=== PATIENT | male | born 1940 | race Caucasian/White ===

== ENCOUNTER → 2016-05-11 | Outpatient (CLI) | payer MEDICARE, OTHER ==
--- NOTE | 2016-05-11 16:03 | REP ---
MR LUMBAR SPINE WITHOUT CONTRAST: HISTORY: Back and bilateral leg pain. Decreased signal intensity on T2-weighted images is present in lumbar intervertebral discs. The discs are decreased in height. These findings are consistent with disc degeneration. A diffuse disc bulge is present at the L1-2 level. There is minimal compression of the thecal sac. There is hypertrophy of the posterior articulating facets. The L1 nerves exit the neural foramina without compression. A diffuse disc bulge is present at the L2-3 level. There is hypertrophy of the ligamenta flava and posterior articulating facets. These findings produce minimal central canal stenosis. The L2 nerves exit the neural foramina without compression. A diffuse disc bugle is present at the L3-4 level. There is hypertrophy of the ligamenta flava and posterior articulating facets. These findings produce minimal central canal stenosis. The L3 nerves exit the neural foramina without compression. A diffuse disc bulge asymmetric to the right is present at the L4-5 level. There is hypertrophy of the ligamenta flava and posterior articulating facets. These findings produce minimal central canal stenosis. There is compression of the right L4 nerve in the neural foramen. The left L4 nerve exits the neural foramen without compression. A diffuse disc bulge is present at the L5-S1 level. This abuts the thecal sac. There is hypertrophy of the posterior articulating facets. The L5 nerves exit the neural foramina without compression. There is partial sacralization of the L5 vertebral body. The conus medullaris is normal in appearance terminating at the level of the T12-L1 intervertebral disc. Increased signal intensity on T2-weighted images is present in the endplates of the L3-5 vertebral bodies. This represents degenerative change. There is an old compression fracture of the L3 vertebral body with minimal height loss. IMPRESSION: 1. Diffuse disc bulge at the L1-2 level with minimal thecal sac compression. 2. Minimal central canal stenosis at the L2-3 through L4-5 levels secondary to disc bulge ligamentous and facet hypertrophy. There is compression of the right L4 nerve in the neural foramen. 3. Diffuse disc bulge at the L5-S1 level. This abuts the thecal sac. Signed by Trip Peters MD 05/11/2016 04:08 P
== END ==
LOC: M RAD 13:48
PROVIDERS: ATTEND Physician Assistant
DX: M51.36 Other intervertebral disc degeneration, lumbar region (principal)

== ENCOUNTER → 2016-11-24 | Outpatient (REF) | payer MEDICARE, OTHER ==
[2016-11-24 16:26] LABS: INR 1.01
== END ==
LOC: M LABDRAW1 13:13
PROVIDERS: ATTEND Physical Medicine & Rehabilitation
DX: Z79.01 Long term (current) use of anticoagulants (principal); D69.1 Qualitative platelet defects

== ENCOUNTER 2018-05-15 16:42 | Emergency (ER) | payer MEDICARE, OTHER ==
[~2018-05-15] VITALS: Ht 167.6 cm; Wt 73.2 kg
[2018-05-15] MEDS ORDERED: PERI4TAB PO (17:02)
[2018-05-15] MEDS ORDERED: OMEPRAZOLE BICARB PO (17:02)
[2018-05-15] MEDS ORDERED: CHLO125TA PO (17:02)
[2018-05-15] MEDS ORDERED: ATOR40TA75 PO (17:02)
[2018-05-15] MEDS ORDERED: CLOP75TA2 PO (17:02)
--- NOTE | 2018-05-15 17:29 | REP ---
Clinical: Acute chest pain . Comparison: None . Technique: PA and lateral. Findings: The mediastinum and cardiac silhouette are normal. The lung fuchs are clear and without acute consolidation, effusion, or pneumothorax. The skeletal structures are intact and normal. Impression: 1. No acute cardiopulmonary process. Electronically Signed by Phil Card MD 05/15/2018 05:21 P
[2018-05-15 17:42] LABS: BASO # 0.1 10^3/uL (0.0-0.2); BASO % 0.9 % (0.0-1.0); EOS # 0.1 10^3/uL (0.0-0.50); EOS % 2.2 % (0.0-3.0); HEMATOCRIT 41.2 % (42.0-52.0); HEMOGLOBIN 14.2 g/dl (13.5-17.5); LYMPH # 1.3 10^3/uL (1.5-4.5); LYMPH % 19.6 % (24.0-44.0); MEAN CORPUSCULAR HGB CONC 34.5 g/dl (32.0-36.5); MEAN CORPUSCULAR VOLUME 92.8 fl (80.0-96.0); MONO # 0.6 10^3/uL (0.0-0.8); MONO % 9.3 % (0.0-5.0); NEUTROPHILS # 4.4 10^3/uL (1.8-7.7); NEUTROPHILS % 67.8 % (36.0-66.0); PLATELET COUNT, AUTOMATED 213 10^3/uL (150-450); RED BLOOD COUNT 4.44 10^6/uL (4.30-6.10); WHITE BLOOD COUNT 6.4 10^3/uL (4.0-10.0)
[2018-05-15 17:52] LABS: INR 1.08; PROTHROMBIN TIME 14.1 SECONDS (12.1-14.4)
[2018-05-15 17:53] LABS: PARTIAL THROMBOPLASTIN TIME 28.5 SECONDS (25.4-37.6)
[2018-05-15 18:33] LABS: ALBUMIN 3.9 GM/DL (3.2-5.2); ALT/SGPT 27 U/L (12-78); BILIRUBIN,DIRECT 0.1 MG/DL (0.0-0.2); BILIRUBIN,TOTAL 0.5 MG/DL (0.2-1.0); BLOOD UREA NITROGEN 16 MG/DL (7-18); CALCIUM LEVEL 8.8 MG/DL (8.8-10.2); CARBON DIOXIDE LEVEL 27 MEQ/L (21-32); CHLORIDE LEVEL 105 MEQ/L (98-107); CPK CREATINE PHOSPHOKINASE 205 U/L (39-308); CREATININE FOR GFR 1.26 MG/DL (0.70-1.30); FREE T4 1.03 NG/DL (0.76-1.46); GLOMERULAR FILTRATION RATE 59.2 (>42); GLUCOSE, FASTING 100 MG/DL (70-100); LIPASE 154 U/L (73-393); SODIUM LEVEL 139 MEQ/L (136-145); TOTAL PROTEIN 7.3 GM/DL (6.4-8.2); TROPONIN I < 0.02 NG/ML (< 0.10)
[2018-05-15 18:56] LABS: INFLUENZA A AMPLIFICATION NEGATIVE (NEGATIVE); INFLUENZA B AMPLIFICATION NEGATIVE (NEGATIVE)
[2018-05-15] MEDS ORDERED: ISOVUE-370 76% 125ML VIAL (Q9967 PER ML) As Ordered ONE (19:33)
--- NOTE | 2018-05-15 20:05 | ECGEPIP ---
Stationary ECG Study [facility] - ED Test Date: 2018-05-15 Pat Name: ADALBERTO WOLFE Department: Room: - Gender: M Hospital Clinic Assistant: : 1940 Requested By: Monik Chacko Order Number: [id number] Reading MD: Micah Aquino Measurements Intervals [place] Rate: 94 P: 57 [place]: 157 QRS: 42 QRSD: 149 T: 5 QT: 383 QTc: 481 Interpretive Statements SINUS RHYTHM RIGHT BUNDLE BRANCH BLOCK NO PRIORS FOR COMPARISON Electronically Signed On 05-15-2018 20:05:45 EDT by Micah Aquino
--- NOTE | 2018-05-15 20:11 | REP ---
Clinical: Acute chest pain. Technique: Axial contrast enhanced images from the thoracic inlet to the upper abdomen using 100 ml Isovue 370 intravenous contrast material with coronal and sagittal re-formations. Findings: Satisfactory enhancement of the pulmonary vasculature is achieved and no filling defects are identified to suggest pulmonary embolus. Lung fuchs demonstrate mild posterior basilar dependent changes without consolidation, effusion, or pneumothorax. No significant nodule or mass lesion identified. Atherosclerotic changes to the thoracic aorta and coronary arteries noted without aortic aneurysm, cardiomegaly or pericardial effusion. No adenopathy. Surrounding musculoskeletal structures are intact. Impression: No evidence for pulmonary embolus. No acute pleuroparenchymal or mediastinal process. Electronically Signed by Phil Card MD 05/15/2018 08:02 P
[2018-05-15 23:40] LABS: CPK CREATINE PHOSPHOKINASE 176 U/L (39-308); MB/CK RELATIVE INDEX 1.59 (< OR =4); TROPONIN I < 0.02 NG/ML (< 0.10)
[2018-05-16 00:07] VITALS: BP 122/59
--- NOTE | 2018-05-16 08:12 | ECGEPIP ---
Stationary ECG Study [facility] - ED Test Date: 2018-05-15 Pat Name: ADALBERTO WOLFE Department: Room: - Gender: M Rag Baler: NIKKO : 1940 Requested By: LIZBETH Thoamson Order Number: [id number] Reading MD: Micah Aquino Measurements Intervals [place] Rate: 52 P: 67 MS: 169 QRS: 42 QRSD: 151 T: 7 QT: 420 QTc: 392 Interpretive Statements SINUS BRADYCARDIA RIGHT BUNDLE BRANCH BLOCK SIMILAR TO PRIOR ON SAME DATE Electronically Signed On 05-16-2018 8:12:23 EDT by Micah Aquino
== END 2018-05-16 00:13 | disposition home or self-care (01) ==
LOC: M ED 16:42
DX: R00.2 Palpitations (principal); Z87.891 Personal history of nicotine dependence
CPT/HCPCS: 71046; 71275; 80048; 80076; 82550; 82553; 83690; 84439; 84443; 84484; 85025; 85610; 85730; 87502; 93005; 93041; 94760; 99285; Q9967

== ENCOUNTER 2020-03-21 14:20 | Emergency (ER) | payer MEDICARE, OTHER ==
[~2020-03-21] VITALS: Ht 167.6 cm; Wt 69.7 kg
[~2020-03-21 14:20] MED LIST: ATOR40TA75 PO; CHLO125TA PO; CLOP75TA2 PO; OMEPRAZOLE BICARB PO; PERI4TAB PO
[2020-03-21 15:01] LABS: HEMATOCRIT 36.5 % (42.0-52.0); HEMOGLOBIN 12.9 g/dl (13.5-17.5); MEAN CORPUSCULAR HEMOGLOBIN 32.4 pg (27.0-33.0); MEAN CORPUSCULAR HGB CONC 35.3 g/dl (32.0-36.5); MEAN CORPUSCULAR VOLUME 91.7 fl (80.0-96.0); PLATELET COUNT, AUTOMATED 225 10^3/uL (150-450); RED BLOOD COUNT 3.98 10^6/uL (4.30-6.10); WHITE BLOOD COUNT 5.1 10^3/uL (4.0-10.0)
[2020-03-21 15:15] LABS: INR 1.02; PARTIAL THROMBOPLASTIN TIME 26.6 SECONDS (24.2-38.5); PROTHROMBIN TIME 13.6 SECONDS (12.5-14.3)
[2020-03-21] MEDS ORDERED: OCEA0.654 (15:21)
[2020-03-21] MEDS ORDERED: ONDA4TAB6 PO (15:21)
[2020-03-21] MEDS ORDERED: LISI40TA PO (15:21)
[2020-03-21] MEDS ORDERED: D 101000 PO (15:21)
[2020-03-21] MEDS ORDERED: SUCR1TAB56 PO (15:21)
[2020-03-21] MEDS ORDERED: ASPI-523 PO (15:21)
[2020-03-21] MEDS ORDERED: VITA-243 PO (15:21)
[2020-03-21] MEDS ORDERED: SUPECAP7 PO (15:21)
[2020-03-21] MEDS ORDERED: MI-A80CH PO (15:21)
[2020-03-21] MEDS ORDERED: CHLO25TA PO (15:21)
[2020-03-21] MEDS ORDERED: CENT1TAB PO (15:21)
[2020-03-21] MEDS ORDERED: SPIR-10 PO (15:21)
[2020-03-21 15:34] LABS: ALBUMIN 4.1 GM/DL (3.2-5.2); ALT/SGPT 25 U/L (12-78); BILIRUBIN,DIRECT 0.2 MG/DL (0.0-0.2); BILIRUBIN,TOTAL 0.5 MG/DL (0.2-1.0); BLOOD UREA NITROGEN 27 MG/DL (7-18); CALCIUM LEVEL 9.4 MG/DL (8.8-10.2); CARBON DIOXIDE LEVEL 26 MEQ/L (21-32); CHLORIDE LEVEL 96 MEQ/L (98-107); CK-MB VALUE MASS 3.1 NG/ML (<3.6); CPK CREATINE PHOSPHOKINASE 162 U/L (39-308); CREATININE FOR GFR 1.29 MG/DL (0.70-1.30); GLOMERULAR FILTRATION RATE 57.3 (>42); GLUCOSE, FASTING 139 MG/DL (70-100); LIPASE 138 U/L (73-393); MB/CK RELATIVE INDEX 1.91 (< OR =4); NT-PRO BNP 48 PG/ML (<450); POTASSIUM SERUM 4.2 MEQ/L (3.5-5.1); SODIUM LEVEL 129 MEQ/L (136-145); THYROID STIMULATING HORMONE 0.565 uIU/ML (0.358-3.740); TOTAL PROTEIN 7.8 GM/DL (6.4-8.2); TROPONIN I < 0.02 NG/ML (< 0.10)
--- NOTE | 2020-03-21 15:54 | REP ---
INDICATION: CHEST PAIN. COMPARISON: Comparison portable chest x-ray 15 May 2018. TECHNIQUE: Portable upright AP chest radiograph. FINDINGS: The lungs are well inflated and free of infiltrate. Pleural angles are sharp. Heart size is normal. Pulmonary vasculature is not increased. EKG monitoring electrodes are noted. There is a granulomatous calcification in the right upper lung zone. IMPRESSION: No active disease. <Electronically signed by James Do > 03/21/20 [id number]
[2020-03-21] MEDS ORDERED: ISOVUE-370 76% 100ML VIAL As Ordered ONE (16:06)
--- NOTE | 2020-03-21 16:45 | ECGEPIP ---
[facility] - ED Test Date: 2020-03-21 Pat Name: ADALBERTO WOLFE Department: Room: - Gender: Male Wild Life Manager: TY : 1940 Requested By: Cheyenne Houston Order Number: [id number] Reading MD: Cheyenne Houston Measurements Intervals [place] Rate: 91 P: 72 [place]: 168 QRS: 75 QRSD: 146 T: 37 QT: 362 QTc: 446 Interpretive Statements SINUS RHYTHM RIGHT BUNDLE BRANCH BLOCK INCREASED RATE 05/15/18 Electronically Signed on 03-21-2020 16:45:22 EST by Cheyenne Houston
--- NOTE | 2020-03-21 16:48 | REP ---
INDICATION: chest pain; r/o TAA. COMPARISON: Comparison CT study May 15, 2018.. TECHNIQUE: Contrast dose: 75 ML of Isovue [address] technique: Helical scanning is acquired and overlapping 1.5 mm and contiguous 3 mm axial images are reformatted. In addition, maximum intensity projection and multiplanar re-formation images are generated in sagittal and coronal imaging projections. FINDINGS: There is good opacification in the pulmonary arterial tree. There is no evidence of vessel cut off or filling defect to suggest pulmonary embolus. Homogeneous opacity is seen in the thoracic aorta. There is no evidence of aneurysm or dissection. Lung window settings demonstrate clear well inflated lungs. There is no evidence of infiltrate, mass, or significant pulmonary nodule. There is a single calcified granuloma in the right upper lobe anteromedially which is unchanged. No pleural or pericardial effusion is seen. No hilar or mediastinal mass or adenopathy is observed. Some vascular calcification is seen along the distribution of the left coronary artery. In the upper abdomen, there are multiple low-density small liver lesions consistent with cysts. These are unchanged from the 2019 prior study. The liver is not felt to be enlarged. The spleen is unremarkable. Normal adrenal glands are seen. No abnormality is noted in the pancreas. The gallbladder is surgically absent. IMPRESSION: No CT evidence of thoracic aortic dissection or aneurysm. No CT evidence of pulmonary embolus. Minimal vascular calcification. Stable hepatic cysts. No acute disease.. <Electronically signed by James Do > 03/21/20 [id number]
[2020-03-21 18:00] LABS: CK-MB VALUE MASS 2.6 NG/ML (<3.6); CPK CREATINE PHOSPHOKINASE 142 U/L (39-308); MB/CK RELATIVE INDEX 1.83 (< OR =4); TROPONIN I < 0.02 NG/ML (< 0.10)
[2020-03-21 21:27] LABS: CK-MB VALUE MASS 2.6 NG/ML (<3.6); CPK CREATINE PHOSPHOKINASE 149 U/L (39-308); MB/CK RELATIVE INDEX 1.74 (< OR =4); TROPONIN I < 0.02 NG/ML (< 0.10)
[2020-03-21 21:30] VITALS: BP 124/58
--- NOTE | 2020-03-22 08:53 | ECGEPIP ---
[facility] - ED Test Date: 2020-03-21 Pat Name: ADALBERTO WOLFE Department: Room: - Gender: Male Associate Director Of Nursing: : 1940 Requested By: STAS BELTRAN Order Number: [id number] Reading MD: Cheyenne Houston Measurements Intervals [place] Rate: 86 P: 68 [place]: 175 QRS: 62 QRSD: 144 T: 32 QT: 364 QTc: 437 Interpretive Statements SINUS RHYTHM RIGHT BUNDLE BRANCH BLOCK similar 03/21/20 Electronically Signed on 03-22-2020 8:53:36 EST by Cheyenne Houston
--- NOTE | 2020-03-22 08:54 | ECGEPIP ---
[facility] - ED Test Date: 2020-03-21 Pat Name: ADALBERTO WOLFE Department: Room: - Gender: Male Clinical Nutrition Manager: FLORENCIO : 1940 Requested By: STAS BELTRAN Order Number: [id number] Reading MD: Cheyenne Houston Measurements Intervals [place] Rate: 63 P: 72 [place]: 167 QRS: 58 QRSD: 142 T: 32 QT: 383 QTc: 393 Interpretive Statements SINUS RHYTHM RIGHT BUNDLE BRANCH BLOCK decreased rate 03/21/20 Electronically Signed on 03-22-2020 8:54:06 EST by Cheyenne Houston
== END 2020-03-21 21:52 | disposition home or self-care (01) ==
LOC: M ED 14:20
DX: R07.9 Chest pain, unspecified (principal); I45.10 Unspecified right bundle-branch block; Z95.5 Presence of coronary angioplasty implant and graft; Z98.890 Other specified postprocedural states; I10 Essential (primary) hypertension; E78.5 Hyperlipidemia, unspecified; K21.9 Gastro-esophageal reflux disease without esophagitis; I25.10 Atherosclerotic heart disease of native coronary artery without angina pectoris; I25.2 Old myocardial infarction; G62.9 Polyneuropathy, unspecified; G89.29 Other chronic pain; M54.9 Dorsalgia, unspecified; Z87.19 Personal history of other diseases of the digestive system; Z79.899 Other long term (current) drug therapy; Z79.82 Long term (current) use of aspirin; Z79.01 Long term (current) use of anticoagulants; Z88.1 Allergy status to other antibiotic agents; Z88.2 Allergy status to sulfonamides; Z87.891 Personal history of nicotine dependence
CPT/HCPCS: 36415; 71045; 71275; 80048; 80076; 82550; 82553; 83690; 83880; 84443; 84484; 85027; 85610; 85730; 93005; 93041; 94760; 99285; Q9967

== ENCOUNTER → 2020-03-24 | Outpatient (CLI) | payer MEDICARE, OTHER ==
[~2020-03-24] MED LIST changes: +ASPI-523 PO; +CENT1TAB PO; +CHLO25TA PO; +D 101000 PO; +LISI40TA PO; +MI-A80CH PO; +OCEA0.654; +ONDA4TAB6 PO; +SPIR-10 PO; +SUCR1TAB56 PO; +SUPECAP7 PO; +VITA-243 PO
[2020-03-24 14:05] LABS: ALBUMIN 4.2 GM/DL (3.2-5.2); BILIRUBIN,TOTAL 0.5 MG/DL (0.2-1.0); CALCIUM LEVEL 9.8 MG/DL (8.8-10.2); CREATININE FOR GFR 1.37 MG/DL (0.70-1.30); GLOMERULAR FILTRATION RATE 53.5 (>42); MAGNESIUM LEVEL 1.8 MG/DL (1.8-2.4); POTASSIUM SERUM 4.5 MEQ/L (3.5-5.1); TOTAL PROTEIN 7.6 GM/DL (6.4-8.2)
== END ==
LOC: M LAB 12:52
PROVIDERS: ATTEND Physician Assistant
DX: I10 Essential (primary) hypertension (principal)

== ENCOUNTER 2020-05-13 16:18 | Observation (INO) | payer MEDICARE, OTHER ==
[~2020-05-13] VITALS: Ht 167.6 cm; Wt 63.8 kg
[~2020-05-13 16:18] MED LIST changes: -LISI40TA PO; +LISI40TA4 PO
[2020-05-13 17:21] LABS: BASO # 0.1 10^3/uL (0.0-0.2); BASO % 0.8 % (0.0-1.0); EOS # 0.2 10^3/uL (0.0-0.5); EOS % 2.3 % (0.0-3.0); HEMOGLOBIN 12.4 g/dl (13.5-17.5); LYMPH # 1.7 10^3/uL (1.5-5.0); MEAN CORPUSCULAR HEMOGLOBIN 32.5 pg (27.0-33.0); MEAN CORPUSCULAR HGB CONC 33.5 g/dl (32.0-36.5); MEAN CORPUSCULAR VOLUME 96.9 fl (80.0-96.0); MONO # 0.5 10^3/uL (0.0-0.8); NEUTROPHILS % 66.6 % (36.0-66.0); PLATELET COUNT, AUTOMATED 213 10^3/uL (150-450); RED BLOOD COUNT 3.82 10^6/uL (4.30-6.10); WHITE BLOOD COUNT 7.5 10^3/uL (4.0-10.0)
--- NOTE | 2020-05-13 17:21 | REP ---
INDICATION: CVA. COMPARISON: 03/21/2020. TECHNIQUE: Portable AP chest with the patient upright. FINDINGS: The lung fuchs are clear. Cardiac size is normal. The tony, mediastinum and skeletal structures are unremarkable. IMPRESSION: Essentially negative portable chest There is no interval change. <Electronically signed by Romeo Benavides > 05/13/20 [id number]
--- NOTE | 2020-05-13 17:27 | REPVR ---
PROCEDURE INFORMATION: Exam: CT Head Without Contrast Exam date and time: 05/13/2020 4:54 PM Age: 79 years old Clinical indication: Pain; Headache; Additional info: CVA - nursing interventions must not delay CT TECHNIQUE: Imaging protocol: Computed tomography of the head without contrast. Radiation optimization: All CT scans at this facility use at least one of these dose optimization techniques: automated exposure control; mA and/or kV adjustment per patient size (includes targeted exams where dose is matched to clinical indication); or iterative reconstruction. Other technique: STROKE PROTOCOL was implemented. COMPARISON: No relevant prior studies available. FINDINGS: Brain: Normal. No hemorrhage. Unremarkable white matter. No mass effect. Cerebral ventricles: No ventriculomegaly. Bones/joints: Unremarkable. No acute fracture. Paranasal sinuses: Visualized sinuses are unremarkable. No fluid levels. Mastoid air cells: Visualized mastoid air cells are well aerated. Soft tissues: Unremarkable. IMPRESSION: No acute intracranial abnormality. ASSESSMENT: ASPECTS ([place] Stroke Program Early CT Score) is 10. Electronically signed by: Daniel Pereyra On 05/13/2020 17:27:27 PM
[2020-05-13 17:31] LABS: PARTIAL THROMBOPLASTIN TIME 29.1 SECONDS (24.2-38.5); PROTHROMBIN TIME 13.4 SECONDS (12.5-14.3)
[2020-05-13 17:48] LABS: CK-MB VALUE MASS 3.2 NG/ML (<3.6); CPK CREATINE PHOSPHOKINASE 174 U/L (39-308); MB/CK RELATIVE INDEX 1.84 (< OR =4); TROPONIN I < 0.02 NG/ML (< 0.10)
[2020-05-13] MEDS ORDERED: MIRT-62 PO (18:18)
[2020-05-13] MEDS ORDERED: ZEGE40CA3 PO (18:18)
[2020-05-13] MEDS ORDERED: CARV6.25 PO (18:18)
[2020-05-13] MEDS ORDERED: PROBCAP14 PO (18:18)
[2020-05-13] MEDS ORDERED: COEN100T PO (18:18)
[2020-05-13 19:11] LABS: RSV AMPLIFICATION NEGATIVE (NEGATIVE)
[2020-05-13] MEDS ORDERED: MIRTAZAPINE 15 MG TAB PO SCH (21:00)
[2020-05-13] MEDS ORDERED: lisinopriL 40 MG TAB PO SCH (21:00)
[2020-05-13] MEDS ORDERED: ATORVASTATIN 20 MG TAB PO SCH (21:00)
[2020-05-13] MEDS ORDERED: SUCRALFATE 1 GM TAB PO PRN (21:15)
--- NOTE | 2020-05-13 21:22 | ECGEPIP ---
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
--- NOTE | 2020-05-13 21:38 | HPEPDOC ---
General Date of Admission May 13, 2020 at 16:19 Date of Service: May 13, 2020 Chief Complaint paresthesia History of Present Illness HPI: This is a 79-year-old male who presented with cc of L sided numbness earlier this afternoon. He states that he was using the restroom when he felt left upper and lower extremity numbness. He denies any weakness or dizziness or syncopal episodes. Denies any CP, SOB, abdominal pain, fever chills, n/v/d, vision changes, headaches. He also denies any gait abnormalities, denies any speech slurring. Past medical/surgical history Hypertension CAD status post stent. Hyperlipidemia PVD status post femoral stent on right. Carotid stenosis. Mesenteric ischemia status post stent. Peripheral neuropathy. Chronic lower back pain. SILVERIO Social history: Quit smoking 20 years ago; started smoking around age 14. On pack per day Drinks 1 beer on a rare occasion Denies illicit drug use Lives at home with Family history: Mom2 diabetes. Dad- from car accident. Brothers and sisters with hypertension, CAD, colon cancer, breast cancer IMAGING: XR chest and CT head in ER - wnl PHYSICAL EXAM VITALS: See below. GENERAL: Pt is laying comfortably in bed in no acute distress, able to speak in full sentences. no deficits in speech and language HEENT: EOMI. Conjunctiva and lids normal. CARDIOVASCULAR: Regular rate and rhythm. No murmurs, rubs, or gallops appreciated. PULMONARY: Clear to auscultation with good air movement. No wheezes, rales, or rhonchi appreciated. ABD: No tenderness to palpation. Normoactive bowel sounds to all four quadrants. No guarding on palpation EXTREMITIES: 2+ DP pulses. No pitting edema. NEURO: No focal neurological deficits. CN II-12 preserved. 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 He will be admitted under the hospitalist service for workup of TIA #TIA - Pt is a vasculopath and cc of brief L sided numbness - CT head in ER wnl - will order for MRI of brain, MRA brain, carotid u/s doppler bilat - Will order UDS - f/u on a1c ,lipid panel , TSH - neurochecks q4h -PT/OT to eval and treat - bedside swallow eval for now - continue ASA and plavix - c/w statin - allow permissive htn -NPO for now - can advance as tolerated in am #CAD s/p stent in feb 2020 - c/w asa and plavix #PVD s/p R femoral vein stent #mesenteric ischemia s/p stent placement in jn2020 #peripheral neuropathy 2/2 to lower back nerve impingement - c/w home meds #SILVERIO - prior sleep study shows settig of 9cm H20 on CPAP #Essential HTN - c/w home meds not in decompensated state dvt ppx: heparin fluids: none diet: npo pending speech eval code status: full Home Medications Scheduled Ascorbic Acid (Vitamin C) 500 Mg Tablet, 1,000 MG PO DAILY, (Reported) Aspirin (Aspirin EC) 81 Mg Tablet.dr, 81 MG PO DAILY, (Reported) Atorvastatin Calcium (Atorvastatin Calcium) 40 Mg Tab, 40 MG PO QHS, (Reported) Carvedilol (Carvedilol) 6.25 Mg Tablet, 6.25 MG PO BID, (Reported) Cholecalciferol (Vitamin D3) (Vitamin D3) 25 Mcg Capsule, 25 MCG PO DAILY, (Reported) Clopidogrel Bisulfate (Clopidogrel) 75 Mg Tab, 75 MG PO DAILY, (Reported) Lactobacillus Acidophilus (Probiotic) 1 Each Capsule, 1 CAP PO DAILY, (Reported) Mirtazapine (Remeron) 15 Mg Tablet, 15 MG PO QHS, (Reported) Multivit-Min/FA/Lycopen/Lutein (Centrum Silver Tablet) 1 Each Tablet, 1 TAB PO DAILY, (Reported) [place]-3 Fatty Acids (Super Twin Epa-Dha) 1,250 Mg Capsule, 1 CAP PO DAILY, (Reported) Omeprazole/Sodium Bicarbonate (Zegerid 40 mg Capsule) 1 Each Capsule, 1 CAP PO QHS, (Reported) Ubidecarenone (Coenzyme Q10) 100 Mg Tablet, 100 MG PO DAILY, (Reported) Scheduled PRN Sucralfate (Sucralfate) 1 Gm Tablet, 1 GM PO DAILY PRN for DISCOMFORT, (Reported) Allergies Coded Allergies: Sulfa (Sulfonamide Antibiotics) (Verified Adverse Reaction, Unknown, 03/21/20) amlodipine (Verified Adverse Reaction, Unknown, MUSCLE STIFFNESS/CRAMPING, 05/13/20) A-FIB/CHADSVASC A-FIB History Current/History of A-Fib/PAF?: No Current PO Anticoag Therapy: No Vital Signs Vital Signs Date Time Temp Pulse Resp B/P (MAP) Pulse Ox O2 Delivery O2 Flow Rate FiO2 05/13/20 21:00 98.0 59 17 148/64 (92) 98 Room Air Laboratory Data Labs 24H Laboratory Tests 2 05/13/20 17:05: Immature Granulocyte % (Auto) 0.3, Neutrophils (%) (Auto) 66.6H, Lymphocytes (%) (Auto) 23.0L, Monocytes (%) (Auto) 7.0, Eosinophils (%) (Auto) 2.3, Basophils (%) (Auto) 0.8, Neutrophils # (Auto) 5.0, Lymphocytes # (Auto) 1.7, Monocytes # (Auto) 0.5, Eosinophils # (Auto) 0.2, Basophils # (Auto) 0.1, Nucleated Red Blood Cells % (auto) 0.0, Prothrombin Time 13.4, Prothromb Time International Ratio 1.00, Activated Partial Thromboplast Time 29.1, Total Creatine Kinase 174, Creatine Kinase MB 3.2, Creatine Kinase MB Relative Index 1.84, Troponin I < 0.02 05/13/20 17:12: POC Glucose (Misc Panel) 119H, POC Sodium (Misc Panel) 140, POC Potassium (Misc Panel) 4.8, POC Chloride (Misc Panel) 104, POC Total CO2 (Misc Panel) 28.0H, POC Blood Urea Nitrogen (Misc Panel 23, POC Ionized Calcium (Misc Panel) 5.1, POC Creatinine (Misc Panel) 1.4H, POC Hematocrit (Misc Panel) 38.0 05/13/20 18:10: Coronavirus (COVID-19)(PCR) NEGATIVE, Influenza Type A (RT-PCR) NEGATIVE, Influenza Type B (RT-PCR) NEGATIVE, Respiratory Syncytial Virus (PCR) NEGATIVE CBC/BMP Laboratory Tests 05/13/20 17:05 Plan / VTE VTE Prophylaxis Ordered?: Yes GME ATTESTATION GME ATTESTATION My faculty preceptor for this patient encounter was physically present during the encounter and was fully available. All aspects of the patient interview, examination, medical decision making process, and medical care plan development were reviewed and approved by the faculty preceptor. The faculty preceptor is aware and concurs with the plan as stated in the body of this note and will attest to such by his/her cosignature. ATTENDING NOTE Time of first visit 830pm 05/13/20 is a 79 yr old w a hx of CAD w stent in LAD [place], BL carotid stenosis, mesenteric ischemia s/p stents, peripheral neuropathy, IBS, SILVERIO & HTN who presented w c/o transient L arm and leg paresthesias concerning for TIA. We will ask the day time team to f/u on the work-up for the TIA. Regarding his anemia, the patient can f/u w his PCP and or shank tapper at [facility] in [place]. Rest per 's H&P Allen Morgan DO May 13, 2020 21:38 LOU ROJAS MD May 14, 2020 00:11
[2020-05-13 21:54] VITALS: BP 140/51
--- NOTE | 2020-05-13 22:18 | REPVR ---
PROCEDURE INFORMATION: Exam: MR Head Without Contrast Exam date and time: 05/13/2020 10:10 PM Age: 79 years old Clinical indication: Altered mental status/memory loss; Confusion or disorientation; Patient HX: Confusion that has since subsided; Additional info: TIA TECHNIQUE: Imaging protocol: MR of the head without contrast. COMPARISON: CT Head without contrast 05/13/2020 4:52 PM FINDINGS: Brain: Normal. No acute infarct. No hemorrhage. No significant white matter disease. No edema. Cerebral ventricles: Normal. No ventriculomegaly. Bones/joints: Unremarkable. Paranasal sinuses: Normal as visualized. No acute sinusitis. Mastoid air cells: Normal as visualized. No mastoid effusion. Orbital cavity: Unremarkable. Soft tissues: Unremarkable. IMPRESSION: No acute findings. Electronically signed by: Daniel Pereyra On 05/13/2020 22:18:17 PM
--- NOTE | 2020-05-13 22:30 | REPVR ---
PROCEDURE INFORMATION: Exam: MR Angiogram Head Without Contrast, Arteries Exam date and time: 05/13/2020 10:10 PM Age: 79 years old Clinical indication: Cognitive deficit; Altered mental status; Patient HX: Confusion that has since subsided; Additional info: TIA TECHNIQUE: Imaging protocol: MR angiogram head without contrast. Exam focused on the arteries. COMPARISON: CT Head without contrast 05/13/2020 4:52 PM FINDINGS: ANTERIOR CIRCULATION: Right internal carotid artery: Intracranial segment is patent with no significant stenosis. No aneurysm. Right middle cerebral artery: No occlusion or significant stenosis. No aneurysm. Right anterior cerebral artery: No occlusion or significant stenosis. No aneurysm. Left internal carotid artery: Intracranial segment is patent with no significant stenosis. No aneurysm. Left middle cerebral artery: No occlusion or significant stenosis. No aneurysm. Left anterior cerebral artery: No occlusion or significant stenosis. No aneurysm. POSTERIOR CIRCULATION: Right vertebral artery: Right vertebral artery ends in PICA. Left vertebral artery: The left vertebral artery continues as the basilar artery. Basilar artery: No occlusion or significant stenosis. No aneurysm. Right posterior cerebral artery: No occlusion or significant stenosis. No aneurysm. Left posterior cerebral artery: No occlusion or significant stenosis. No aneurysm. IMPRESSION: No acute abnormality. Electronically signed by: Daniel Pereyra On 05/13/2020 22:29:45 PM
[2020-05-13] MEDS: HEPARIN SOD (PORCINE) 5000UNITS/ML 1ML VIAL/SYRINGE SC SCH (22:44)
[2020-05-13] MEDS: CARVedilol 6.25 MG TAB PO SCH (22:45)
[2020-05-14] MEDS: HEPARIN SOD (PORCINE) 5000UNITS/ML 1ML VIAL/SYRINGE SC SCH (05:54)
[2020-05-14 06:00] VITALS: BP 108/44
--- NOTE | 2020-05-14 08:12 | REP ---
INDICATION: TIA COMPARISON: None. TECHNIQUE: Real-time ultrasound evaluation and duplex Doppler interrogation of the extracranial carotid vasculature is performed. FINDINGS: Antegrade flow is observed in both vertebral arteries. Right carotid: The right common carotid artery shows diffuse intimal thickening but is otherwise unremarkable. There moderate mixed plaquing in the right carotid bulb and proximal ICA on two-dimensional scanning. Color flow and spectral Doppler interrogation are unremarkable on the right. Velocity chart right carotid: Right CCA PSV: 79 cm/S Right ICA PSV: 247 cm/S Right ICA EDV: 27 cm/S Right ECA PSV: 311 cm/S Right ICA/CCA ratio: 3.12 Left carotid: The left common carotid artery shows diffuse intimal thickening but is otherwise unremarkable. There is moderate mixed plaquing in the left carotid bulb and proximal ICA on two-dimensional scanning. Color flow and spectral Doppler interrogation are unremarkable on the left. Velocity chart left carotid: Left CCA PSV: 94 cm/S Left ICA PSV: 193 cm/S Left ICA EDV: 33 cm/S Left ECA PSV: 198 cm/S Left ICA/CCA ratio: 2.05 IMPRESSION: 50-69 % category narrowing in the right internal carotid artery by Doppler velocity criteria. 50-69% category narrowing in the left ICA by Doppler velocity criteria. There is bilateral external carotid artery narrowing as well. <Electronically signed by James Do > 05/14/20 [id number]
[2020-05-14] MEDS ORDERED: MULTIVITAMINS/MINERALS THERAP 1 TAB PO SCH (09:00)
[2020-05-14] MEDS ORDERED: CLOPIDOGREL 75 MG TAB PO SCH (09:00)
[2020-05-14] MEDS ORDERED: ASPIRIN 81MG ENTERIC TABLET PO SCH (09:00)
[2020-05-14] MEDS ORDERED: SPIRONOLACTONE 12.5MG PER 1/2 TABLET PO SCH (09:00)
[2020-05-14] MEDS ORDERED: ASCORBIC ACID 500 MG TAB PO SCH (09:00)
[2020-05-14 09:56] LABS: CREATININE FOR GFR 1.38 MG/DL (0.70-1.30); GLOMERULAR FILTRATION RATE 53.1 (>42); POTASSIUM SERUM 5.2 MEQ/L (3.5-5.1)
[2020-05-14 10:04] LABS: HEMOGLOBIN A1c 5.6 %
[2020-05-14 10:10] VITALS: BP 142/58
[2020-05-14] MEDS: CARVedilol 6.25 MG TAB PO SCH (10:10)
[2020-05-14] MEDS ORDERED: CALCIUM GLUCONATE 1,000 MG in D5W MINI-BAG PLUS 100 ML IV ONE (11:15)
[2020-05-14 11:28] LABS: CHOLESTEROL RISK RATIO 2.888 (<5); THYROID STIMULATING HORMONE 1.63 uIU/ML (0.358-3.740)
[2020-05-14 12:25] LABS: HEMOGLOBIN 11.7 g/dl (13.5-17.5); MEAN CORPUSCULAR HEMOGLOBIN 32.2 pg (27.0-33.0); MEAN CORPUSCULAR HGB CONC 33.4 g/dl (32.0-36.5); MEAN CORPUSCULAR VOLUME 96.4 fl (80.0-96.0); PLATELET COUNT, AUTOMATED 201 10^3/uL (150-450); RED BLOOD COUNT 3.63 10^6/uL (4.30-6.10); WHITE BLOOD COUNT 5.7 10^3/uL (4.0-10.0)
[2020-05-14 13:52] LABS: CALCIUM LEVEL 9.7 MG/DL (8.8-10.2); CREATININE FOR GFR 1.34 MG/DL (0.70-1.30); GLOMERULAR FILTRATION RATE 54.9 (>42); POTASSIUM SERUM 5.2 MEQ/L (3.5-5.1)
[2020-05-14 14:00] VITALS: BP 138/51
--- NOTE | 2020-05-14 15:39 | DS.PDOC ---
Discharge Summary General Date of Admission May 13, 2020 at 16:19 Date of Discharge 05/14/20 Attending Physician: RASHEED CARDOZA MD Specialist/Consultants Involve Patients PCP in [place] ([facility]) Please CC Discharge Summary PROCEDURES PERFORMED DURING STAY: [None]. ADMITTING DIAGNOSES: 1. Transient Ischemic Attack 2. Hyperkalemia DISCHARGE DIAGNOSES: 1. Transient Ischemic Attack 2. Hyperkalemia COMPLICATIONS/CHIEF COMPLAINT: TIA. HISTORY OF PRESENT ILLNESS: Patient is a 79 year old male with a past medical history significant for hypertension, CAD, PVD with history of mesenteric ischemia s/p stent placement and right femoral stent placement, and peripheral neuropathy who presented to the [facility] ER with complaint of left sided numbness and weakness. He stated that he was using the rest room and noticed left arm and le g numbness and weakness. This lasted only a few seconds and then completely resolved. He denied any changes in vision. He denied any slurring of his speech. He stated that he was instructed to come to the ED by his Clerical Support. On presentation to the ER the patient was vitally stable although hypertensive. His symptoms had completely resolved at the time. In the ER he had received a CT of the head, Brain MRI and MRA, and carotid vascular ultrasound all of which were negative for any acute findings. The patient was then admitted for further evaluation for TIA HOSPITAL COURSE: During patients hospitalization he denied any weakness. He stated that he felt at his baseline. The patient was continued on Telemetry monitoring. No acute events were reported or observed on telemetry. Echocardio gram was obtained with report pending. Patient was continued on his home aspirin and plavix. Of note the patient had an elevated potassium level of 5.2. This was confirmed with lab to be a true value and not secondary to hemolysis. The patients medications were reviewed and he was on both lisinopril and spironolactone. The patient was otherwise ready for discharge and stated that he would like to go home. Given his hyperkalemia his lisinopril and spironolactone were discontinued. He was given a lab order for a BMP to be completed in 3 days. Results of the BMP will be forwarded to the patients PCP Anat Villafuerte of [facility]. Patient was instructed to follow-up with his PCP in 3-5 days for review of his BMP and echocardiogram report. 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 Lastly patient was instructed to follow-up with his vascular surgeon in [place]. Patient had stated that he was told his ICA on left and right was 70% stenosed. MRA obtained through ER did not demonstrate this. Consider possible CT angiogram of the neck through Vascular surgery to assess need for potential carotid endarterectomy if clinically warranted DISCHARGE MEDICATIONS: Please see below. ALLERGIES: Please see below. PHYSICAL EXAMINATION ON DISCHARGE: VITAL SIGNS: Please see below. GENERAL: Awake, alert, and oriented. Appears in no acute distress. Lying comfortably in bed HEENT: Atraumatic, normocephalic. Eyes are nonicteric. Trachea is midline. Mucous membranes are pink and moist CARDIDIOVASCULAR EXAMINATION: Normal S1, S2. Regular rate and rhythm. No clicks rubs or murmurs. RESPIRATORY EXAMINATION: Clear vesicular breath sounds bilaterally. No wheezes, rhonchi, or rales. ABDOMINAL EXAMINATION: Soft, nondistended. Nontender. Normoactive bowel sounds throughout EXTREMITIES: No edema.Full and equal pulses in bilateral upper and lower extremities SKIN: No rashes or lesions NEUROLOGICAL EXAMINATION: No focal neurological deficits. CN II-XII grossly intact. 5/5 muscle strength testing in bilateral upper and lower extremities. Ce rebellar testing with finger to nose and heel to osorio is normal. Gait is normal. Speech is normal PSYCHIATRIC EXAMINATION: Mood and affect appear appropriate LABORATORY DATA: Please see below. IMAGING: THIS REPORT CONTAINS FINDINGS THAT MAY BE CRITICAL TO PATIENT CARE. The findings were verbally communicated via telephone conference with GONZÁLEZ MEDINA at 5:31 PM EDT on 05/13/2020. The findings were acknowledged and understood. Electronically signed by: Daniel Pereyra On 05/13/2020 17:32:08 PM DD: DANIEL Nicole RAI, DO 05/13/20 1654 DT: TITUS 05/13/20 173 DS: VARINDER 05/13/20 173 PROCEDURE INFORMATION: Exam: CT Head Without Contrast Exam date and time: 05/13/2020 4:54 PM Age: 79 years old Clinical indication: Pain; Headache; Additional info: CVA - nursing interventions must not delay CT TECHNIQUE: Imaging protocol: Computed tomography of the head without contrast. Radiation optimization: All CT scans at this facility use at least one of these dose optimization techniques: automated exposure control; mA and/or kV adjustment per patient size (includes targeted exams where dose is matched to clinical indication); or iterative reconstruction. Other technique: STROKE PROTOCOL was implemented. COMPARISON: No relevant prior studies available. FINDINGS: Brain: Normal. No hemorrhage. Unremarkable white matter. No mass effect. Cerebral ventricles: No ventriculomegaly. Bones/joints: Unremarkable. No acute fracture. Paranasal sinuses: Visualized sinuses are unremarkable. No fluid levels. Mastoid air cells: Visualized mastoid air cells are well aerated. Soft tissues: Unremarkable. IMPRESSION: No acute intracranial abnormality. ASSESSMENT: ASPECTS (Nette Stroke Program Early CT Score) is 10. Electronically signed by: Daniel Pereyra On 05/13/2020 17:27:27 PM DD: DANIEL Nicole RAI DO 05/13/201653 DT: VR 05/13/201726 DS: VARINDER 05/13/201726 INDICATION: CVA. COMPARISON: 03/21/2020. TECHNIQUE: Portable AP chest with the patient upright. FINDINGS: The lung fuchs are clear. Cardiac size is normal. The tony, mediastinum and skeletal structures are unremarkable. IMPRESSION: Essentially negative portable chest There is no interval change. <Electronically signed by Romeo Benavides > 05/13/20 1717 PROCEDURE INFORMATION: Exam: MR Angiogram Head Without Contrast, Arteries Exam date and time: 05/13/2020 10:10 PM Age: 79 years old Clinical indication: Cognitive deficit; Altered mental status; Patient HX: Confusion that has since subsided; Additional info: TIA TECHNIQUE: Imaging protocol: MR angiogram head without contrast. Exam focused on the arteries. COMPARISON: CT Head without contrast 05/13/2020 4:52 PM FINDINGS: ANTERIOR CIRCULATION: Right internal carotid artery: Intracranial segment is patent with no significant stenosis. No aneurysm. Right middle cerebral artery: No occlusion or significant stenosis. No aneurysm. Right anterior cerebral artery: No occlusion or significant stenosis. No aneurysm. Left internal carotid artery: Intracranial segment is patent with no significant stenosis. No aneurysm. Left middle cerebral artery: No occlusion or significant stenosis. No aneurysm. Left anterior cerebral artery: No occlusion or significant stenosis. No aneurysm. POSTERIOR CIRCULATION: Right vertebral artery: Right vertebral artery ends in PICA. Left vertebral artery: The left vertebral artery continues as the basilar artery. Basilar artery: No occlusion or significant stenosis. No aneurysm. Right posterior cerebral artery: No occlusion or significant stenosis. No aneurysm. Left posterior cerebral artery: No occlusion or significant stenosis. No aneurysm. IMPRESSION: No acute abnormality. Electronically signed by: Daniel Pereyra On 05/13/2020 22:29:45 PM PROCEDURE INFORMATION: Exam: MR Head Without Contrast Exam date and time: 05/13/2020 10:10 PM Age: 79 years old Clinical indication: Altered mental status/memory loss; Confusion or disorientation; Patient HX: Confusion that has since subsided; Additional info: TIA TECHNIQUE: Imaging protocol: MR of the head without contrast. COMPARISON: CT Head without contrast 05/13/2020 4:52 PM FINDINGS: Brain: Normal. No acute infarct. No hemorrhage. No significant white matter disease. No edema. Cerebral ventricles: Normal. No ventriculomegaly. Bones/joints: Unremarkable. Paranasal sinuses: Normal as visualized. No acute sinusitis. Mastoid air cells: Normal as visualized. No mastoid effusion. Orbital cavity: Unremarkable. Soft tissues: Unremarkable. IMPRESSION: No acute findings. Electronically signed by: Daniel Pereyra On 05/13/2020 22:18:17 PM INDICATION: TIA COMPARISON: None. TECHNIQUE: Real-time ultrasound evaluation and duplex Doppler interrogation of the extracranial carotid vasculature is performed. FINDINGS: Antegrade flow is observed in both vertebral arteries. Right carotid: The right common carotid artery shows diffuse intimal thickening but is otherwise unremarkable. There moderate mixed plaquing in the right carotid bulb and proximal ICA on two-dimensional scanning. Color flow and spectral Doppler interrogation are unremarkable on the right. Velocity chart right carotid: Right CCA PSV: 79 cm/S Right ICA PSV: 247 cm/S Right ICA EDV: 27 cm/S Right ECA PSV: 311 cm/S Right ICA/CCA ratio: 3.12 Left carotid: The left common carotid artery shows diffuse intimal thickening but is otherwise unremarkable. There is moderate mixed plaquing in the left carotid bulb and proximal ICA on two-dimensional scanning. Color flow and spectral Doppler interrogation are unremarkable on the left. Velocity chart left carotid: Left CCA PSV: 94 cm/S Left ICA PSV: 193 cm/S Left ICA EDV: 33 cm/S Left ECA PSV: 198 cm/S Left ICA/CCA ratio: 2.05 IMPRESSION: 50-69 % category narrowing in the right internal carotid artery by Doppler velocity criteria. 50-69% category narrowing in the left ICA by Doppler velocity criteria. There is bilateral external carotid artery narrowing as well. <Electronically signed by James Do > 05/14/20 0852 PROGNOSIS: Good ACTIVITY: [As tolerated]. DIET: 2 gram sodium DISCHARGE PLAN: Patient is to be discharged home. He is to have BMP completed in 3 days. Follow-up with PCP in 3-5 days. He is to STOP lisinopril and Spiron olactone due to hyperkalemia. He is to continue his aspirin, plavix, and atorvastatin as previously prescribed. He is to follow-up with his Clerical Support and Vascular Surgeon. Patient is to return to ED if his symptoms return or worsen. DISPOSITION: . DISCHARGE INSTRUCTIONS: 1. Complete BMP in 3 days 2. Follow-up with PCP in 3-5 days with BMP results and echocardiogram report 3. STOP Lisinopril and Spironolactone. Follow-up with PCP for BP management 4. Follow-up with Cardiology for consideration for Holter/event monitor due to recent TIA 5. Follow-up with Vascular Surgery for consideration of further consideration of CTA of the neck and possible carotid endarterectomy if clinically indicated DISCHARGE CONDITION: [Stable]. TIME SPENT ON DISCHARGE: Greater than 40 minutes. Vital Signs/I&Os Vital Signs Date Time Temp Pulse Resp B/P (MAP) Pulse Ox O2 Delivery O2 Flow Rate FiO2 05/14/20 14:00 98.0 54 16 138/51 (80) 96 Room Air I&O- Last 24 Hours up to 6 AM 05/14/20 05:59 Intake Total 60 ml Output Total 0 ml Balance 60 ml Laboratory Data Labs 24H Laboratory Tests 2 05/13/20 17:05: Immature Granulocyte % (Auto) 0.3, Neutrophils (%) (Auto) 66.6H, Lymphocytes (%) (Auto) 23.0L, Monocytes (%) (Auto) 7.0, Eosinophils (%) (Auto) 2.3, Basophils (%) (Auto) 0.8, Neutrophils # (Auto) 5.0, Lymphocytes # (Auto) 1.7, Monocytes # (Auto) 0.5, Eosinophils # (Auto) 0.2, Basophils # (Auto) 0.1, Nucleated Red Blood Cells % (auto) 0.0, Prothrombin Time 13.4, Prothromb Time International Ratio 1.00, Activated Partial Thromboplast Time 29.1, Total Creatine Kinase 174, Creatine Kinase MB 3.2, Creatine Kinase MB Relative Index 1.84, Troponin I < 0.02 05/13/20 17:12: POC Glucose (Misc Panel) 119H, POC Sodium (Misc Panel) 140, POC Potassium (Misc Panel) 4.8, POC Chloride (Misc Panel) 104, POC Total CO2 (Misc Panel) 28.0H, POC Blood Urea Nitrogen (Misc Panel 23, POC Ionized Calcium (Misc Panel) 5.1, POC Creatinine (Misc Panel) 1.4H, POC Hematocrit (Misc Panel) 38.0 05/13/20 18:10: Coronavirus (COVID-19)(PCR) NEGATIVE, Influenza Type A (RT-PCR) NEGATIVE, Influenza Type B (RT-PCR) NEGATIVE, Respiratory Syncytial Virus (PCR) NEGATIVE 05/14/20 08:38: Nucleated Red Blood Cells % (auto) 0.0, Anion Gap 4L, Glomerular Filtration Rate 53.1, Estimated Mean Plasma Glucose 114H, Hemoglobin A1c 5.6, Calcium Level 9.0, Triglycerides Level 118, Total Cholesterol 130, LDL Cholesterol 61, Non-HDL Cholesterol (LDL + VLDL) 85, Total HDL Cholesterol 45, Cholesterol/HDL Ratio 2.888, Thyroid Stimulating Hormone (TSH) 1.630 05/14/20 13:06: Anion Gap 4L, Glomerular Filtration Rate 54.9, Calcium Level 9.7 CBC/BMP Laboratory Tests 05/13/20 17:05 05/14/20 08:38 05/14/20 13:06 Discharge Medications Scheduled Ascorbic Acid (Vitamin C) 500 Mg Tablet, 1,000 MG PO DAILY, (Reported) Aspirin (Aspirin EC) 81 Mg Tablet.dr, 81 MG PO DAILY, (Reported) Atorvastatin Calcium (Atorvastatin Calcium) 40 Mg Tab, 40 MG PO QHS, (Reported) Carvedilol (Carvedilol) 6.25 Mg Tablet, 6.25 MG PO BID, (Reported) Cholecalciferol (Vitamin D3) (Vitamin D3) 25 Mcg Capsule, 25 MCG PO DAILY, (Reported) Clopidogrel Bisulfate (Clopidogrel) 75 Mg Tab, 75 MG PO DAILY, (Reported) Lactobacillus Acidophilus (Probiotic) 1 Each Capsule, 1 CAP PO DAILY, (Reported) Mirtazapine (Remeron) 15 Mg Tablet, 15 MG PO QHS, (Reported) Multivit-Min/FA/Lycopen/Lutein (Centrum Silver Tablet) 1 Each Tablet, 1 TAB PO DAILY, (Reported) [place]-3 Fatty Acids (Super Twin Epa-Dha) 1,250 Mg Capsule, 1 CAP PO DAILY, (Reported) Omeprazole/Sodium Bicarbonate (Zegerid 40 mg Capsule) 1 Each Capsule, 1 CAP PO QHS, (Reported) Ubidecarenone (Coenzyme Q10) 100 Mg Tablet, 100 MG PO DAILY, (Reported) Scheduled PRN Sucralfate (Sucralfate) 1 Gm Tablet, 1 GM PO DAILY PRN for DISCOMFORT, (Reported) Allergies Coded Allergies: Sulfa (Sulfonamide Antibiotics) (Verified Adverse Reaction, Unknown, 03/21/20) amlodipine (Verified Adverse Reaction, Unknown, MUSCLE STIFFNESS/CRAMPING, 05/13/20) GME ATTESTATION GME ATTESTATION My faculty preceptor for this patient encounter was physically present during the encounter and was fully available. All aspects of the patient interview, examination, medical decision making process, and medical care plan development were reviewed and approved by the faculty preceptor. The faculty preceptor is aware and concurs with the plan as stated in the body of this note and will attest to such by his/her cosignature. ATTENDING NOTE I, Rasheed Cardoza MD, have independently examined this patient and performed my own physical exam, as well as reviewed the documentation and edited where necessary. I have discussed in detail with the resident / student the findings and plan of treatment as documented by the resident / student and edited their note. I agree with their findings and treatment plan and have edited their documentation. Total time spent on this discharge including coordination of care, review of chart, review and additions in the documentation of the resident and actual patient contact is around 35 minutes MERLYN SMITH DO May 14, 2020 15:39 RASHEED CARDOZA MD May 20, 2020 15:09
--- NOTE | 2020-05-15 13:06 | ECHO ---
DATE OF PROCEDURE: 05/14/2020 Age: 79 Gender: Male Height: 66 inches Weight: 141 pounds Body surface area: 1.72 m2 PATIENT LOCATION: Inpatient [address] [place] [address], Room 4210. REFERRING PHYSICIAN: Marcela Morgan DO. INDICATION: Transient ischemic attack (TIA) cardiac source of embolic material ? MEASUREMENTS: 2D Measurements: RV 3.4 cm LV 4.8 cm Septum 1.1 cm Posterior wall 1.1 cm Aortic Root 3.5 cm LA 3.8 cm LVEF 75% Doppler Measurements: AV 1.6 m/s LVOT 1.0 m/s LVOT diameter 2.1 cm MV-E 96, A 83, E/A ratio 1.2 Early mitral deceleration time 190 msec E prime medial 8.5, A prime medial 9.7, E prime lateral 8.4 Average E/E prime ratio 11.4/PCWP - 16 mmHg PV 0.95 m/s Pulmonary artery acceleration time 127 msec RVSP 25 mmHg IVC 1.7 cm COMMENTS: Sinus bradycardia with right bundle branch block. M-mode and two-dimensional echocardiography was performed with pulse, continuous wave, color flow, and tissue Doppler studies. Normal left ventricular size, wall thickness, and hyperkinetic wall motion. Left atrial size upper limits of normal with currently normal Doppler assessment of LV diastolic function and estimated mean left atrial pressure. Normal right heart chamber sizes and motion and estimated pulmonary arterial pressure. Normal IVC size and collapse against an elevated central venous pressure. Normal aortic diameters. Mild aortic valvular sclerosis without stenosis, but mild insufficiency that was eccentric toward the anterior leaflet of the mitral valve. Slight degenerative changes of the mitral valve apparatus, but normal leaflet excursion and no posterior systolic buckling. Only trace mitral insufficiency. Normal appearing tricuspid valve with very mild insufficiency. No apparent intracardiac mass or pericardial effusion. Saline contrast study was performed from the apical four chamber projection using 10 mL of agitated saline administered by bolus injection into a large forearm vein. Excellent opacification of right heart chambers was observed with no [id number] shunting even with Valsalva maneuver. In light of the aortic valve findings, it would be prudent to obtain a complete blood count, sedimentation rate, and two sets of blood cultures to rule out endocarditis. It also may be prudent to consider a transesophageal echocardiogram. MTDD
== END 2020-05-14 15:47 | disposition home or self-care (01) ==
LOC: M ED 16:18 → M ED INP 16:19 → ENRESERV 20:14 → M MSPAV 21:27
PROVIDERS: ADMIT Internal Medicine; ATTEND Internal Medicine
DX: G45.9 Transient cerebral ischemic attack, unspecified (principal); E87.5 Hyperkalemia; R00.1 Bradycardia, unspecified; I45.10 Unspecified right bundle-branch block; I35.8 Other nonrheumatic aortic valve disorders; I11.9 Hypertensive heart disease without heart failure; E78.5 Hyperlipidemia, unspecified; I73.9 Peripheral vascular disease, unspecified; K58.0 Irritable bowel syndrome with diarrhea; G62.9 Polyneuropathy, unspecified; M54.5 Low back pain; G47.33 Obstructive sleep apnea (adult) (pediatric); Z95.820 Peripheral vascular angioplasty status with implants and grafts; Z79.899 Other long term (current) drug therapy; Z79.82 Long term (current) use of aspirin; Z79.02 Long term (current) use of antithrombotics/antiplatelets; Z88.2 Allergy status to sulfonamides; Z88.8 Allergy status to other drugs, medicaments and biological substances; Z87.891 Personal history of nicotine dependence
CPT/HCPCS: 36415; 70450; 70544; 70551; 71045; 80047; 80048; 80061; 82550; 82553; 83036; 84443; 84484; 85025; 85027; 85610; 85730; 86850; 86900; 86901; 87631; 93005; 93041; 93306; 93880; 94760; 96372; 97161; 99285; G0378; J0610; J1644

== ENCOUNTER → 2020-06-09 | Outpatient (REF) | payer MEDICARE, OTHER ==
[~2020-06-09] MED LIST changes: +CARV6.25 PO; +COEN100T PO; +MIRT-62 PO; +PROBCAP14 PO; +ZEGE40CA3 PO
== END ==
LOC: M LAB REF 11:33
PROVIDERS: ATTEND Internal Medicine Gastroenterology
DX: R19.7 Diarrhea, unspecified (principal)

== ENCOUNTER → 2020-07-02 | Outpatient (CLI) | payer MEDICARE, OTHER | LOC: M LABSMTC 11:29 | PROVIDERS: ATTEND Surgery Vascular Surgery | DX: Z01.818 Encounter for other preprocedural examination (principal); Z20.822 Contact with and (suspected) exposure to COVID-19 ==

== ENCOUNTER 2020-10-26 14:00 | Emergency (ER) | payer MEDICARE, OTHER ==
[~2020-10-26] VITALS: Ht 167.6 cm; Wt 59.0 kg
--- NOTE | 2020-10-26 16:59 | ECGEPIP ---
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
[2020-10-26 17:08] LABS: BASO # 0.1 10^3/uL (0.0-0.2); BASO % 1.1 % (0.0-1.0); EOS # 0.2 10^3/uL (0.0-0.5); EOS % 3.2 % (0.0-3.0); HEMATOCRIT 40.1 % (42.0-52.0); HEMOGLOBIN 13.4 g/dl (13.5-17.5); LYMPH # 1.7 10^3/uL (1.5-5.0); LYMPH % 25.8 % (24.0-44.0); MEAN CORPUSCULAR HEMOGLOBIN 32.5 pg (27.0-33.0); MEAN CORPUSCULAR HGB CONC 33.4 g/dl (32.0-36.5); MEAN CORPUSCULAR VOLUME 97.3 fl (80.0-96.0); MONO # 0.7 10^3/uL (0.0-0.8); MONO % 9.9 % (2.0-8.0); NEUTROPHILS % 59.7 % (36.0-66.0); PLATELET COUNT, AUTOMATED 199 10^3/uL (150-450); RED BLOOD COUNT 4.12 10^6/uL (4.30-6.10); WHITE BLOOD COUNT 6.7 10^3/uL (4.0-10.0)
[2020-10-26 17:23] LABS: CK-MB VALUE MASS 2.5 NG/ML (<3.6); CPK CREATINE PHOSPHOKINASE 128 U/L (39-308); MB/CK RELATIVE INDEX 1.95 (< OR =4); TROPONIN I < 0.02 NG/ML (< 0.10)
[2020-10-26 17:41] VITALS: BP 140/60
== END 2020-10-26 17:44 | disposition home or self-care (01) ==
LOC: M ED 14:00
DX: I10 Essential (primary) hypertension (principal); I45.10 Unspecified right bundle-branch block; I25.10 Atherosclerotic heart disease of native coronary artery without angina pectoris; Z95.1 Presence of aortocoronary bypass graft; Z95.5 Presence of coronary angioplasty implant and graft; Z79.899 Other long term (current) drug therapy; Z79.82 Long term (current) use of aspirin; Z79.01 Long term (current) use of anticoagulants; Z88.1 Allergy status to other antibiotic agents; Z88.2 Allergy status to sulfonamides; Z88.8 Allergy status to other drugs, medicaments and biological substances; Z87.891 Personal history of nicotine dependence

== ENCOUNTER → 2021-04-14 | Outpatient (CLI) | payer MEDICARE, OTHER | LOC: M RAD 06:44 | PROVIDERS: ATTEND Internal Medicine Gastroenterology | DX: R19.7 Diarrhea, unspecified (principal); R14.0 Abdominal distension (gaseous); R10.13 Epigastric pain; K55.1 Chronic vascular disorders of intestine ==

== ENCOUNTER → 2021-04-14 | Outpatient (CLI) | payer MEDICARE, OTHER | LOC: M RAD 06:43 | PROVIDERS: ATTEND Surgery Vascular Surgery | DX: K55.1 Chronic vascular disorders of intestine (principal); I65.23 Occlusion and stenosis of bilateral carotid arteries; I77.4 Celiac artery compression syndrome ==

== ENCOUNTER → 2021-07-12 | Outpatient (CLI) | payer MEDICARE, OTHER | LOC: M LABSMTC 10:06 | PROVIDERS: ATTEND Surgery Vascular Surgery | DX: I73.9 Peripheral vascular disease, unspecified (principal); Z11.52 Encounter for screening for COVID-19 ==

== ENCOUNTER → 2021-08-13 | Outpatient (CLI) | payer MEDICARE, OTHER ==
[~2021-08-13] MED LIST changes: +ISOVUE-370 76% 100ML VIAL As Ordered ONE
== END ==
LOC: M RAD 13:17
PROVIDERS: ATTEND Surgery Vascular Surgery
DX: K55.1 Chronic vascular disorders of intestine (principal); I77.4 Celiac artery compression syndrome; I70.1 Atherosclerosis of renal artery
CPT/HCPCS: 74175; Q9967

== ENCOUNTER 2021-09-03 08:12 | Emergency (ER) | payer MEDICARE, OTHER ==
[~2021-09-03] VITALS: Ht 167.6 cm; Wt 67.5 kg
[~2021-09-03 08:12] MED LIST changes: -ISOVUE-370 76% 100ML VIAL As Ordered ONE
[2021-09-03] MEDS ORDERED: LISI20TA33 PO (10:17)
[2021-09-03] MEDS ORDERED: ASPI-226 PO (10:17)
[2021-09-03] MEDS ORDERED: LIDOCAINE 5% (LIDODERM) PATCH TD ONE (10:50)
[2021-09-03 10:51] LABS: BASO # 0.1 10^3/uL (0.0-0.2); BASO % 0.7 % (0.0-1.0); EOS # 0.8 10^3/uL (0.0-0.5); EOS % 7.8 % (0.0-3.0); HEMATOCRIT 38.3 % (42.0-52.0); HEMOGLOBIN 12.9 g/dl (13.5-17.5); LYMPH # 1.3 10^3/uL (1.5-5.0); LYMPH % 12.3 % (24.0-44.0); MEAN CORPUSCULAR HEMOGLOBIN 32.9 pg (27.0-33.0); MEAN CORPUSCULAR HGB CONC 33.7 g/dl (32.0-36.5); MEAN CORPUSCULAR VOLUME 97.7 fl (80.0-96.0); MONO # 0.6 10^3/uL (0.0-0.8); MONO % 5.6 % (2.0-8.0); NEUTROPHILS # 7.5 10^3/uL (1.5-8.5); NEUTROPHILS % 73.2 % (36.0-66.0); PLATELET COUNT, AUTOMATED 200 10^3/uL (150-450); RED BLOOD COUNT 3.92 10^6/uL (4.30-6.10); WHITE BLOOD COUNT 10.2 10^3/uL (4.0-10.0)
[2021-09-03] MEDS ORDERED: ISOVUE-370 76% 100ML VIAL As Ordered ONE (11:04)
[2021-09-03 11:13] LABS: ERYTHROCYTE SEDIMENTATION RATE 43 mm/hr (0-20)
[2021-09-03 11:30] LABS: CK-MB VALUE MASS 2.1 NG/ML (<3.6); MB/CK RELATIVE INDEX 1.58 (< OR =4)
[2021-09-03] MEDS ORDERED: BENZ200C70 PO ×2 (12:11→12:31)
[2021-09-03] MEDS ORDERED: AMOX500T PO ×2 (12:11→12:31)
[2021-09-03 12:28] VITALS: BP 174/72
[2021-09-03] MEDS ORDERED: **NOTE PATIENT COMMENT** MISC XX ONE (23:00)
== END 2021-09-03 12:31 | disposition home or self-care (01) ==
LOC: M ED 08:12
DX: R91.8 Other nonspecific abnormal finding of lung field (principal); R07.89 Other chest pain; R09.89 Other specified symptoms and signs involving the circulatory and respiratory systems; I10 Essential (primary) hypertension; G62.9 Polyneuropathy, unspecified; I25.2 Old myocardial infarction; K21.9 Gastro-esophageal reflux disease without esophagitis; Z86.718 Personal history of other venous thrombosis and embolism; Z86.73 Personal history of transient ischemic attack (TIA), and cerebral infarction without residual deficits; Z79.899 Other long term (current) drug therapy; Z79.82 Long term (current) use of aspirin; Z79.01 Long term (current) use of anticoagulants; Z88.1 Allergy status to other antibiotic agents; Z88.2 Allergy status to sulfonamides; Z88.8 Allergy status to other drugs, medicaments and biological substances
CPT/HCPCS: 36415; 71045; 71275; 80047; 82550; 82553; 84484; 85025; 85652; 86140; 87486; 87581; 87633; 87798; 93005; 99284; Q9967

== ENCOUNTER → 2021-10-18 | Outpatient (CLI) | payer MEDICARE, OTHER ==
[~2021-10-18] MED LIST changes: +AMOX500T PO; +ASPI-226 PO; +BENZ200C70 PO; +LISI20TA33 PO
== END ==
LOC: M RAD 07:53
PROVIDERS: ATTEND Surgery Vascular Surgery
DX: K55.1 Chronic vascular disorders of intestine (principal)

== ENCOUNTER 2021-11-09 05:20 | Emergency (ER) | payer MEDICARE, OTHER ==
[~2021-11-09] VITALS: Ht 167.6 cm; Wt 65.9 kg
[2021-11-09 06:00] LABS: BASO # 0.1 10^3/uL (0.0-0.2); EOS # 1.3 10^3/uL (0.0-0.5); EOS % 12.2 % (0.0-3.0); HEMATOCRIT 41.1 % (42.0-52.0); HEMOGLOBIN 13.7 g/dl (13.5-17.5); LYMPH # 1.7 10^3/uL (1.5-5.0); LYMPH % 15.2 % (24.0-44.0); MEAN CORPUSCULAR HEMOGLOBIN 32.1 pg (27.0-33.0); MEAN CORPUSCULAR HGB CONC 33.3 g/dl (32.0-36.5); MEAN CORPUSCULAR VOLUME 96.3 fl (80.0-96.0); MONO # 0.8 10^3/uL (0.0-0.8); MONO % 7.7 % (2.0-8.0); NEUTROPHILS # 6.9 10^3/uL (1.5-8.5); NEUTROPHILS % 63.5 % (36.0-66.0); PLATELET COUNT, AUTOMATED 228 10^3/uL (150-450); RED BLOOD COUNT 4.27 10^6/uL (4.30-6.10); WHITE BLOOD COUNT 10.9 10^3/uL (4.0-10.0)
[2021-11-09 06:39] LABS: BILIRUBIN,DIRECT 0.2 MG/DL (0.0-0.2); BILIRUBIN,TOTAL 0.5 MG/DL (0.2-1.0); CALCIUM LEVEL 9.3 MG/DL (8.8-10.2); CREATININE FOR GFR 1.3 MG/DL (0.70-1.30); GLOMERULAR FILTRATION RATE 56.5 (>35); POTASSIUM SERUM 4.2 MEQ/L (3.5-5.1)
[2021-11-09] MEDS ORDERED: MORPHINE 2 MG/ML 1ML VIAL IV PRN (07:50)
[2021-11-09] MEDS ORDERED: ONDANSETRON 4MG 2ML VIAL IV ONE (08:05)
[2021-11-09] MEDS ORDERED: ISOVUE-370 76% 100ML VIAL As Ordered ONE (08:13)
[2021-11-09 08:58] LABS: CK-MB VALUE MASS 1.2 NG/ML (<3.6); MB/CK RELATIVE INDEX 0.7 (< OR =4)
[2021-11-09 09:04] LABS: RSV AMPLIFICATION NEGATIVE (NEGATIVE)
[2021-11-09] MEDS ORDERED: METOCLOPRAMIDE INJ 10MG/2ML VIAL (J2765 PER 1) IV ONE (09:45)
[2021-11-09] MEDS ORDERED: BENZONATATE 100MG CAPSULE PO ONE (11:50)
[2021-11-09] MEDS ORDERED: REGL5TAB2 PO (11:55)
[2021-11-09] MEDS ORDERED: BENZ-18 PO (12:05)
[2021-11-09 12:43] VITALS: BP 171/73
== END 2021-11-09 12:40 | disposition home or self-care (01) ==
LOC: M ED 05:20
DX: K31.84 Gastroparesis (principal); I10 Essential (primary) hypertension; Z79.899 Other long term (current) drug therapy; Z79.01 Long term (current) use of anticoagulants; Z79.82 Long term (current) use of aspirin; Z88.1 Allergy status to other antibiotic agents; Z88.2 Allergy status to sulfonamides; Z88.8 Allergy status to other drugs, medicaments and biological substances; Z87.891 Personal history of nicotine dependence
CPT/HCPCS: 71045; 71275; 74174; 80048; 80076; 82550; 82553; 83605; 83690; 84484; 85025; 87631; 93005; 96374; 96375; 99284; J2405; J2765; Q9967

== ENCOUNTER → 2021-11-17 | Outpatient (CLI) | payer MEDICARE, OTHER ==
[~2021-11-17] MED LIST changes: +BENZ-18 PO; +REGL5TAB2 PO
== END ==
LOC: M CARPUL 09:59
PROVIDERS: ATTEND Physician Assistant
DX: I35.1 Nonrheumatic aortic (valve) insufficiency (principal)

== ENCOUNTER → 2021-12-08 | Outpatient (CLI) | payer MEDICARE, OTHER | LOC: M RAD 13:18 | PROVIDERS: ATTEND Physician Assistant | DX: Z48.812 Encounter for surgical aftercare following surgery on the circulatory system (principal); I65.23 Occlusion and stenosis of bilateral carotid arteries; I70.211 Atherosclerosis of native arteries of extremities with intermittent claudication, right leg ==

== ENCOUNTER 2021-12-23 13:25 | Emergency (ER) | payer OTHER, MEDICARE ==
[~2021-12-23] VITALS: Ht 165.1 cm; Wt 62.7 kg
[2021-12-23] MEDS ORDERED: LIDOCAINE 2% 5ML JELLY UROJET TOP ONE (15:10)
[2021-12-23] MEDS ORDERED: FLOM0.4C39 PO (17:40)
[2021-12-23 17:54] VITALS: BP 182/60
== END 2021-12-23 17:55 | disposition home or self-care (01) ==
LOC: M ED 13:25
DX: R33.9 Retention of urine, unspecified (principal); Z90.49 Acquired absence of other specified parts of digestive tract; Z88.2 Allergy status to sulfonamides; Z88.8 Allergy status to other drugs, medicaments and biological substances; Z79.899 Other long term (current) drug therapy; Z79.82 Long term (current) use of aspirin

== ENCOUNTER → 2022-06-13 | Outpatient (CLI) | payer MEDICARE, OTHER ==
[~2022-06-13] MED LIST changes: +FLOM0.4C39 PO
== END ==
LOC: M RAD 09:10
PROVIDERS: ATTEND Physician Assistant
DX: K55.1 Chronic vascular disorders of intestine (principal); Z48.812 Encounter for surgical aftercare following surgery on the circulatory system

== ENCOUNTER → 2022-06-17 | Outpatient (CLI) | payer MEDICARE, OTHER | LOC: M RAD 09:41 | PROVIDERS: ATTEND Physician Assistant | DX: I65.23 Occlusion and stenosis of bilateral carotid arteries (principal) ==

== ENCOUNTER → 2023-07-28 | Outpatient (CLI) | payer MEDICARE, OTHER ==
[~2023-07-28] MED LIST changes: -MIRT-62 PO; +MIRT-88 PO; +ONDA-282 PO; -ONDA4TAB6 PO
== END ==
LOC: M RAD 08:26
PROVIDERS: ATTEND Surgery Vascular Surgery
DX: I65.23 Occlusion and stenosis of bilateral carotid arteries (principal); K55.1 Chronic vascular disorders of intestine

== ENCOUNTER → 2023-10-24 | Outpatient (CLI) | payer MEDICARE, OTHER | LOC: M PLAIMG 08:12 | PROVIDERS: ATTEND Internal Medicine Cardiovascular Disease | DX: I35.1 Nonrheumatic aortic (valve) insufficiency (principal); R00.1 Bradycardia, unspecified; I45.10 Unspecified right bundle-branch block ==

== ENCOUNTER → 2024-04-11 | Outpatient (CLI) | payer MEDICARE, OTHER | LOC: M RAD 09:37 | PROVIDERS: ATTEND Physician Assistant | DX: K55.1 Chronic vascular disorders of intestine (principal); I65.23 Occlusion and stenosis of bilateral carotid arteries ==

== ENCOUNTER → 2024-05-03 | Outpatient (CLI) | payer MEDICARE, OTHER ==
[~2024-05-03] MED LIST changes: +ISOVUE-370 76% 100ML VIAL As Ordered ONE
== END ==
LOC: M RAD 13:15
PROVIDERS: ATTEND Surgery Vascular Surgery
DX: K55.1 Chronic vascular disorders of intestine (principal)
CPT/HCPCS: 74175; Q9967